=== PATIENT | female | born 1960 | race Caucasian/White ===

== ENCOUNTER → 2019-07-16 | Outpatient (CLI) | payer OTHER, SELFPAY ==
[~2019-07-16] MED LIST: ELDE1CAP PO; [UNRECOGNIZED DRUG - OTHER] PO
[2019-07-16 09:59] LABS: MICROSCOPIC NOT IND
[2019-07-16 10:01] LABS: CULTURE INDICATED? NO
== END | disposition home or self-care (01) ==
LOC: STAR 09:07
PROVIDERS: ATTEND Podiatrist Foot & Ankle Surgery
DX: Z01.818 Encounter for other preprocedural examination (principal); M77.31 Calcaneal spur, right foot
CPT/HCPCS: 81003; 93005

== ENCOUNTER 2019-07-26 05:41 | Day surgery (SDC) | payer OTHER, SELFPAY ==
[~2019-07-26] VITALS: Ht 172.7 cm; Wt 83.2 kg
[2019-07-26] MEDS ORDERED: LACTATED RINGERS 1,000 ML IV SCH (06:28)
[2019-07-26] MEDS ORDERED: BUPIVACAINE/PF 0.5% ONE (06:43)
[2019-07-26] MEDS ORDERED: EPINEPHRINE 1 MG/ML, 1ML ONE (06:43)
[2019-07-26] MEDS ORDERED: MIDAZOLAM 1 MG/ML, 2ML ONE (07:11)
[2019-07-26] MEDS ORDERED: LIDOCAINE 1%, 20ML ONE (07:27)
[2019-07-26] MEDS ORDERED: hydrALAzine 20 MG/ML, 1ML IV PRN (08:00)
[2019-07-26] MEDS ORDERED: ONDANSETRON 2MG/ML, 2ML IVPush PRN (08:00)
[2019-07-26] MEDS ORDERED: LABETALOL 5MG/ML, 20ML IV PRN (08:00)
[2019-07-26] MEDS ORDERED: KETOROLAC 30 MG/1 ML IV PRN (08:00)
[2019-07-26] MEDS ORDERED: ALBUTEROL SULFATE 2.5 MG/3 ML NPPB PRN (08:00)
[2019-07-26] MEDS ORDERED: METOCLOPRAMIDE 5 MG/ML, 2ML IV PRN (08:00)
[2019-07-26] MEDS ORDERED: FENTANYL PF 100 MCG/2ML IV PRN (08:00)
[2019-07-26] MEDS ORDERED: HYDROmorphone 1 MG/ML, 1ML INJ IV PRN (08:00)
[2019-07-26] MEDS ORDERED: DIAZEPAM 5 MG/ML, 2ML IV PRN ×2 (08:00)
[2019-07-26] MEDS ORDERED: OXYcodone 5 MG/5 ML ORAL.SOL UDC PO PRN (08:00)
[2019-07-26] MEDS ORDERED: PROMETHAZINE 25 MG/ML, 1ML IV PRN (08:00)
[2019-07-26] MEDS ORDERED: MEPERIDINE/PF 25MG/0.5ML IVPush PRN (08:00)
[2019-07-26] MEDS ORDERED: ACETAMINOPHEN 650 MG/20.3 ML UDC ONE (08:14)
[2019-07-26] MEDS ORDERED: ACETAMINOPHEN 325 MG TABLET PO PRN (08:30)
[2019-07-26] MEDS ORDERED: CEFAZOLIN 1,000 MG ONE (15:21)
[2019-07-26] MEDS ORDERED: SUCCINYLCHOLINE 20 MG/ML, 10ML ONE (15:21)
[2019-07-26] MEDS ORDERED: DEXAMETHASONE 4 MG/ML, 1ML ONE (15:21)
[2019-07-26] MEDS ORDERED: ONDANSETRON 2MG/ML, 2ML ONE (15:21)
[2019-07-26] MEDS ORDERED: PROPOFOL 10 MG/ML, 20ML ONE (15:21)
== END 2019-07-26 09:25 | disposition home or self-care (01) ==
LOC: OUT 05:41
PROVIDERS: ATTEND Podiatrist Foot & Ankle Surgery
DX: M72.2 Plantar fascial fibromatosis (principal); M77.31 Calcaneal spur, right foot; Z79.1 Long term (current) use of non-steroidal anti-inflammatories (NSAID); Z79.52 Long term (current) use of systemic steroids; Z91.040 Latex allergy status; Z91.048 Other nonmedicinal substance allergy status
CPT/HCPCS: 28119; 73650; J0171; J0330; J0690; J1100; J2250; J2405; J2704; J7120; 76000